=== PATIENT | female | born 1985 ===

== ENCOUNTER 2020-11-04 17:04 | Emergency (ER) | payer OTHER ==
[~2020-11-04] VITALS: Ht 162.6 cm; Wt 56.8 kg
[2020-11-04 17:22] VITALS: BP 119/58
== END 2020-11-04 17:58 | disposition left against medical advice (07) ==
LOC: EMS 17:04
DX: R05 Cough (principal); Z53.21 Procedure and treatment not carried out due to patient leaving prior to being seen by health care provider